=== PATIENT | female | born 1980 | race Caucasian/White ===

== ENCOUNTER 2022-10-11 15:40 | Emergency (ER) | payer MEDICARE, MEDICAID ==
[~2022-10-11] VITALS: Ht 154.9 cm; Wt 61.6 kg
[2022-10-11 16:17] VITALS: BP 111/62
[2022-10-11] MEDS ORDERED: IBUP-860 PO (17:12)
[2022-10-11] MEDS ORDERED: CYCL-1 PO (17:12)
== END 2022-10-11 18:02 | disposition home or self-care (01) ==
LOC: ER 15:41
DX: R07.81 Pleurodynia (principal); M62.830 Muscle spasm of back
CPT/HCPCS: 71045; 99283

== ENCOUNTER 2023-06-01 08:50 | Emergency (ER) | payer MEDICARE, MEDICAID ==
[~2023-06-01] VITALS: Ht 154.9 cm; Wt 59.2 kg
[~2023-06-01 08:50] MED LIST: CYCL-1 PO; IBUP-860 PO
[2023-06-01 10:22] LABS: BILIRUBIN,URINE NEGATIVE (Neg); CLARITY,URINE CLEAR (Clear); COLOR,URINE YELLOW (Yellow); GLUCOSE, URINE NEGATIVE (Neg); KETONES,URINE NEGATIVE (Neg); LEUKOCYTE ESTERASE ,URINE NEGATIVE (Neg); NITRITES, URINE NEGATIVE (Neg); OCCULT BLOOD,URINE TRACE-INTACT (Neg); PH,URINE 5.5 (4.8-8.0); PROTEIN,URINE NEGATIVE (Neg); UROBILINOGEN,URINE 0.2 E.U/dL (0.2-1.0)
[2023-06-01 10:24] LABS: URINE HCG NEGATIVE (NEG)
[2023-06-01 10:40] LABS: UA COLLECTION TYPE CLN CATCH MIDSTREAM
[2023-06-01 10:41] LABS: BACTERIA,URINE NONE SEEN /HPF (Neg); MUCUS STRANDS FEW /LPF (Neg); RBC,URINE 0-2 /HPF (0-2); SQUAMOUS EPITHELIAL CELL,UR FEW /LPF (FEW); WBC,URINE 0-4 /HPF (0-4)
[2023-06-01 10:51] LABS: HEMATOCRIT 42.2 % (35.0-45.0); MEAN CORPUSCULAR HEMOGLOBIN 27.3 PG (27.0-31.0); MEAN CORPUSCULAR HGB CONC 33.1 g/dL (33.0-36.5); MEAN CORPUSCULAR VOLUME 82.3 FL (78-98); PLATELET COUNT 229 X10'3 (140-440); RED BLOOD COUNT 5.12 X10'6 (4.20-5.60); RED CELL DISTRIBUTION WIDTH 18.9 % (11.5-14.5)
[2023-06-01 10:58] LABS: ALBUMIN 4.5 G/DL (3.4-5.0); ANION GAP 14 (8-16); BLOOD UREA NITROGEN 13 MG/DL (7-18); BUN/CREATININE RATIO 17.1 (10.0-20.0); CALCIUM 9.3 MG/DL (8.5-10.1); CHLORIDE 102 MMOL/L (99-107); CREATININE 0.76 MG/DL (0.40-0.90); GLUCOSE 125 MG/DL (70-104); MAGNESIUM 2.1 MG/DL (1.5-2.4); POTASSIUM 4.2 MMOL/L (3.5-5.1); SODIUM 141 MMOL/L (135-145); TOTAL CARBON DIOXIDE 25.1 MMOL/L (24-32); eCRCL 74 ML/MIN; eGFR 84 ML/MIN
[2023-06-01] MEDS ORDERED: iohexol 300mg/ml 100ml inj. ONE (11:12)
[2023-06-01 11:18] LABS: ANISOCYTOSIS 2+; MICROCYTOSIS 1+; PLATELET ESTIMATE NORMAL; TARGET CELLS 1+; TOTAL CELLS COUNTED 100
[2023-06-01] MEDS: clindamycin-Cleocin 900mg/D5W 50 ML IV ONE (11:52)
[2023-06-01 13:22] VITALS: BP 102/63; PULSE 70; RESP 16; TEMP 98.1; O2SAT 98
== END 2023-06-01 13:25 | disposition home or self-care (01) ==
LOC: ER 08:51
DX: L03.213 Periorbital cellulitis (principal); R51.9 Headache, unspecified; Z79.1 Long term (current) use of non-steroidal anti-inflammatories (NSAID); Z79.899 Other long term (current) drug therapy
CPT/HCPCS: 36415; 70487; 80048; 81001; 81025; 83605; 83735; 84145; 85007; 85025; 87040; 96365; 99285; J3490; Q9967

== ENCOUNTER 2023-06-02 07:37 | Emergency (ER) | payer MEDICARE, MEDICAID ==
[~2023-06-02] VITALS: Ht 154.9 cm; Wt 59.1 kg
[2023-06-02 07:39] VITALS: TEMP 98
[2023-06-02] MEDS: dexamethasone sod phosphate 10mg/ml inj IV STA (09:24)
[2023-06-02] MEDS: normal saline 1000ML IV soln IVB ONE (09:24)
[2023-06-02] MEDS: ampicillin/sulbac 3gm/NS 100ml 100 ML IV ONE (09:25)
[2023-06-02 10:52] LABS: HEMOGLOBIN 12.4 g/dl (12.0-16.0); MEAN PLATELET VOLUME 8.8 FL (7.4-10.4)
[2023-06-02 10:55] LABS: HEMATOCRIT 36.6 % (35.0-45.0); MEAN CORPUSCULAR HEMOGLOBIN 27.8 PG (27.0-31.0); MEAN CORPUSCULAR HGB CONC 33.8 g/dL (33.0-36.5); MEAN CORPUSCULAR VOLUME 82.3 FL (78-98); PLATELET COUNT 204 X10'3 (140-440); RED BLOOD COUNT 4.45 X10'6 (4.20-5.60); RED CELL DISTRIBUTION WIDTH 18.8 % (11.5-14.5); WHITE BLOOD COUNT 6.6 X10'3 (4.5-11.0)
[2023-06-02 11:11] LABS: TOTAL CELLS COUNTED 100
[2023-06-02 11:12] LABS: ANISOCYTOSIS 2+; PLATELET ESTIMATE NORMAL
[2023-06-02 11:14] LABS: ELLIPTOCYTES 1+; SCHISTOCYTES FEW; TARGET CELLS 1+
[2023-06-02 11:15] LABS: TEAR DROP CELLS FEW
[2023-06-02 11:40] VITALS: BP 98/62; PULSE 84; RESP 16; O2SAT 98
== END 2023-06-02 11:42 | disposition home or self-care (01) ==
LOC: ER 07:37
DX: R22.0 Localized swelling, mass and lump, head (principal); H57.89 Other specified disorders of eye and adnexa; H57.12 Ocular pain, left eye; Z72.89 Other problems related to lifestyle; Z79.899 Other long term (current) drug therapy
CPT/HCPCS: 36415; 82948; 84145; 85007; 85025; 96365; 96375; 99284; J0295; J1100; J7030

== ENCOUNTER 2024-03-06 15:13 | Emergency (ER) | payer MEDICARE, MEDICAID ==
[~2024-03-06] VITALS: Ht 162.6 cm; Wt 57.0 kg
[2024-03-06 20:10] VITALS: TEMP 98.1
[2024-03-06 21:14] VITALS: BP 112/83; PULSE 65; O2SAT 99
[2024-03-06 21:16] VITALS: RESP 16
== END 2024-03-06 23:15 | disposition home or self-care (01) ==
LOC: ER 15:13
DX: R05.9 Cough, unspecified (principal)
CPT/HCPCS: 36415; 87040; 99283

== ENCOUNTER 2025-01-03 09:14 | Emergency (ER) | payer MEDICARE, MEDICAID ==
[~2025-01-03] VITALS: Ht 157.5 cm; Wt 59.1 kg
[2025-01-03 09:17] VITALS: TEMP 97.1
[2025-01-03] MEDS ORDERED: IBUP-864 PO (10:16)
--- NOTE | 2025-01-03 10:17 | Physician Documentation ---
History of Present Illness ~ Chief Complaint: Wrist pain Stated Complaint: WRIST PAIN Time Seen by MD: 10:05 Primary Medical Doctor: [facility] HPI 44-year-old female with right wrist injury has seen her primary care provider and has had an x-ray she does have an appointment for follow up and every referral but has come into the ER because it is taking too long to get an MRI. Patient is having intermittent bouts of pain she is taking Tylenol. Tetanus within 5 years: No Medication Reconciliation Allergies: Coded Allergies: No Known Allergies (Unverified , 01/03/25) Scheduled Cyclobenzaprine* (Cyclobenzaprine*), 1 TAB PO Q8H Ibuprofen (Ibu), 1 TAB PO Q4H Past Medical History Past Medical History: No Pertinent History Past Surgical History: noncontributory Alcohol Use: Occasionally Drug Use: none Lives with: Spouse Lives In: Home Review of Systems All Other Systems at this time: Reviewed and Negative Musculoskeletal: Reports: see HPI Physical Exam Vital Signs: RN Vital Signs have been reviewed: Yes, Temperature: 97.1, Source: Temporal, Heart Rate: 83, Respiratory Rate: 16, BP: 136/78, Pulse Oximetry: 99, Weight: 59.090 Oxygen Flow Rate: 0 Physical Exam General: Alert, no apparent distress. HEENT: PERRL, EOMI, no injection, moist mucous membranes. Neck: Full range of motion. Respiratory: Lungs clear, no respiratory distress. Chest: No accessory muscle use. Extremities: Velcro wrist brace on right wrist movement of all finger CMS intact distally Neurologic: Oriented x4. Psychiatric: Normal mood and affect. Skin: Normal color, warm and dry. No edema, no ecchymosis. Progress Results/Orders Results/Orders Vital Signs 01/03/25 09:17 Temp 97.1 Pulse 83 Resp 16 B/P (MAP) 136/78 Pulse Ox 99 O2 Flow Rate 0 Medical Decision Making Findings Patient is being cared for by primary care as wrist brace on x-ray patient desired an MRI today because it is taking too long as an outpatient with primary care discussed the differences between emergent and nonemergent MRIs and for her to follow up Departure Time of Disposition: 10:16 Disposition: 01 HOME / SELF CARE / HOMELESS Impression: Primary Impression: Wrist joint pain Condition: Stable Discharge Instructions: Wrist Pain, Adult Additional Instructions: You can take Tylenol and ibuprofen as needed for pain but follow up with primary care to review your x-rays and order MRI as needed Referrals: NO PRIMARY CARE PROVIDER (PCP) Prescriptions Ibuprofen (Ibu) 800 Mg Tablet 1 TAB PO Q8H for 7 Days, #21 TAB 0 Refills Prov: KETURAH CHRISTENSEN NP 01/03/25 Education Educated: Patient Educated regarding: diagnosis, treatment, need for follow up Signature Scribe Signature: No scribe Attestation: The note accurately reflects work and decisions made by me.Keturah Christensen - TROY 01/03/25 10:16 KETURAH CHRISTENSEN NP Jan 03, 2025 10:17
[2025-01-03 10:21] VITALS: BP 105/76; PULSE 78; RESP 16; O2SAT 98
== END 2025-01-03 10:22 | disposition home or self-care (01) ==
LOC: ER 09:15
DX: M25.531 Pain in right wrist (principal)
CPT/HCPCS: 99283